=== PATIENT | female | born 1990 | race Caucasian/White ===

== ENCOUNTER 2017-11-18 16:29 | Emergency (ER) | payer SELFPAY ==
[2017-11-18 16:36] VITALS: BP 140/90
[2017-11-18 17:28] LABS: APPEARANCE,URINE SLIGHTLY-CLOUDY; BILIRUBIN,URINE NEGATIVE (NEGATIVE); COLOR,URINE YELLOW; GLUCOSE, URINE >=500 mg/dL (NEGATIVE); KETONES,URINE TRACE mg/dL (NEGATIVE); LEUKOCYTE ESTERASE,URINE SMALL (NEGATIVE); NITRITE,URINE NEGATIVE (NEGATIVE); PROTEIN,URINE NEGATIVE (NEGATIVE); URINE SPECIFIC GRAVITY 1.021; UROBILINOGEN,URINE NEGATIVE mg/dL (<2.0)
--- NOTE | 2017-11-18 18:27 | ER Document Report ---
HPI - HPI Patient complains to provider of: Dysuria Pain Level: 4 Context: Patient is a 27-year-old female with history of diabetes and kidney stones, and the presents to the emergency department complaining of dysuria and left flank pain 1 day. Patient reports that she recently passed a stone about 3 weeks ago. Positive urgency, small voids. Denies hematuria Associated Symptoms: None Exacerbated by: Denies Relieved by: Denies Similar symptoms previously: No Recently seen / treated by doctor: No - ROS Systems Reviewed and Negative: Yes All other systems reviewed and negative - URINARY Urinary: REPORTS: Dysuria, Urgency - REPRODUCTIVE LMP: 11/05/17 Past Medical History - General Information source: Patient - Social History Smoking Status: Current Every Day Smoker Frequency of alcohol use: None Drug Abuse: None Lives with: Family Family History: Reviewed & Not Pertinent Patient has suicidal ideation: No Patient has homicidal ideation: No Endocrine Medical History: Reports: Hx Diabetes Mellitus Type 2 Renal/ Medical History: Reports: Hx Kidney Stones. Denies: Hx Peritoneal Dialysis Vertical Provider Document - CONSTITUTIONAL Agree With Documented VS: Yes Exam Limitations: No Limitations - INFECTION CONTROL TRAVEL OUTSIDE OF THE [place] IN LAST 30 DAYS: No - HEENT HEENT: Atraumatic, PERRLA - NECK Neck: Normal Inspection, Supple - CARDIOVASCULAR Cardiovascular: Regular Rate, Regular Rhythm - GI/ABDOMEN Gastrointestinal: Abdomen Soft, Abdomen Tender - Mild suprapubic and left lower quadrant tenderness. negative: Abdominal Guarding, Abdominal Rebound - BACK Back: CVA Tenderness-Left - Mild left CVA tenderness - MUSCULOSKELETAL/EXTREMETIES Musculoskeletal/Extremeties: MAEW - NEURO Level of Consciousness: Awake, Alert, Appropriate - DERM Integumentary: Warm, Dry, No Rash Course - Re-evaluation Re-evalutation: 11/18/17 20:02 Urinalysis positive for small leukocytes. Large glucose but patient is a known diabetic. No nitrites or blood. GC/Chlamydia negative. We will treat for uncomplicated cystitis. No signs of hilar or sepsis. Course of antibiotics and urinary anesthetic prescribed. Urine culture ordered. Patient encouraged to push fluids. Home care, primary care follow-up in ED return precautions discussed with patient. Patient acknowledges understanding and agrees with plan. Patient stable for discharge - Vital Signs Vital signs: Temp Pulse Resp BP Pulse Ox 98.8 F 108 H 16 140/90 H 98 11/18/17 16:35 11/18/17 16:35 11/18/17 16:35 11/18/17 16:35 11/18/17 16:35 - Laboratory Laboratory results interpreted by me: 11/18/17 16:50 Urine Glucose (UA) >=500 H Urine Ketones TRACE H Ur Leukocyte Esterase SMALL H Discharge - Discharge Clinical Impression: Dysuria UTI (urinary tract infection) Qualifiers: Urinary tract infection type: acute cystitis Hematuria presence: without hematuria Qualified Code(s): N30.00 - Acute cystitis without hematuria Condition: Stable Disposition: HOME, SELF-CARE Instructions: Antibiotic Therapy ([facility]), Urinary Tract Infection ([facility]) Additional Instructions: Take all antibiotic as prescribed Push fluids Follow-up with your primary care if symptoms persist Prescriptions: Ciprofloxacin HCl [Cipro 500 mg Tablet] 500 mg PO BID #10 tablet Fluconazole [Diflucan] 200 mg PO ONCE PRN #1 tablet PRN Reason: Phenazopyridine HCl [Pyridium 200 mg Tablet] 200 mg PO TID #15 tablet
[2017-11-18 19:01] LABS: CHLAM PCR NOT DETECTED (NOT DETECT); GON PCR NOT DETECTED (NOT DETECT)
== END 2017-11-18 18:33 | disposition home or self-care (01) ==
LOC: ER 16:29
DX: N30.00 Acute cystitis without hematuria (principal); R30.0 Dysuria; E11.9 Type 2 diabetes mellitus without complications; R10.9 Unspecified abdominal pain; R39.15 Urgency of urination; F17.200 Nicotine dependence, unspecified, uncomplicated
CPT/HCPCS: 81001; 87491; 87591; 99283